=== PATIENT | male | born 1980 | race Two or more races ===

== ENCOUNTER 2019-06-17 12:32 | Inpatient (IN) | payer MEDICARE, OTHER ==
[~2019-06-17] VITALS: Ht 180.3 cm; Wt 110.2 kg
[2019-06-17] MEDS ORDERED: ASPIRIN 81MG TABLET PO ONE (13:30)
[2019-06-17 14:13] LABS: CHLORIDE 99 mEq/L (98-107)
[2019-06-17 14:16] LABS: BASOPHILS % 0.7 % (0.0-2.0); EOSINOPHILS % 3.2 % (0.0-5.0); HEMATOCRIT. 32.2 % (42.0-52.0); HEMOGLOBIN. 10.4 g/dL (14.0-18.0); LYMPHOCYTES % 26.1 % (20.0-50.0); MEAN CORPUSCULAR HEMOGLOBIN 25.2 pg (28.0-32.0); MEAN CORPUSCULAR VOLUME 77.6 fL (80.0-94.0); MEAN PLATELET VOLUME 7.7 fl (7.4-10.4); MONOCYTES % 8.6 % (2.0-8.0); NEUTROPHILS % 61.4 % (40.0-76.0); PLATELET 154 x1000/uL (130-400); RED BLOOD CELL COUNT 4.14 mill/uL (4.7-6.1); RED CELL DISTRIBUTION WIDTH 16.4 % (11.6-14.6)
[2019-06-17 14:38] LABS: PROTHROMBIN TIME 10.7 sec (9.6-11.0)
[2019-06-17] MEDS ORDERED: CLONIDINE 0.1MG TABLET PO PRN (15:15)
[2019-06-17] MEDS ORDERED: ACETAMINOPHEN 325MG TABLET PO PRN (15:15)
[2019-06-17] MEDS ORDERED: DEXTROSE 50% WATER 50ML SYRINGE IV PRN (15:15)
[2019-06-17] MEDS ORDERED: ONDANSETRON HCL 4MG/2ML INJ IV PRN (15:15)
[2019-06-17] MEDS ORDERED: MAGNESIUM/ALUMINUM HYDROXIDE/SIMETHICONE 30ML UDC PO PRN (15:15)
[2019-06-17] MEDS ORDERED: DIPHENHYDRAMINE 50MG/ML VIAL IV PRN (15:15)
[2019-06-17] MEDS ORDERED: HYDRALAZINE 20MG/ML VIAL IV PRN (16:00)
[2019-06-17] MEDS: BLOOD SUGAR DIAGNOSTIC STRIP TEST SCH ×2 (17:00→21:11)
[2019-06-17 17:15] VITALS: BP_SYST 143; BP_SYST 201; BP_DIAS 115; BP_DIAS 95
[2019-06-17] MEDS ORDERED: HYDROCODONE/ACETAMINOPHEN 5/325MG TABLET PO PRN (17:45)
[2019-06-17] MEDS ORDERED: DOCU-138 MT (18:01)
[2019-06-17] MEDS ORDERED: ATOR-2 MT (18:01)
[2019-06-17] MEDS ORDERED: ASPI-864 MT (18:01)
[2019-06-17] MEDS ORDERED: SUCR1TAB30 MT (18:01)
[2019-06-17] MEDS ORDERED: METO25TA6 MT (18:01)
[2019-06-17] MEDS ORDERED: CLON0.1T MT (18:01)
[2019-06-17] MEDS ORDERED: PANT20TA3 MT (18:01)
[2019-06-17] MEDS ORDERED: METO-396 MT (18:01)
[2019-06-17] MEDS ORDERED: LOPHC2 MT (18:01)
[2019-06-17] MEDS: INSULIN LISPRO 100 UNITS/ML SUBCUT SCH ×2 (18:50→21:48)
[2019-06-17 20:00] VITALS: BP 146/73
[2019-06-17] MEDS ORDERED: TEMAZEPAM 15MG CAPSULE PO PRN (21:00)
[2019-06-17] MEDS ORDERED: ATORVASTATIN CALCIUM 40MG TABLET PO SCH (21:00)
[2019-06-17] MEDS: OMEPRAZOLE 20MG CAPSULE EXTENDED RELEASE PO SCH (21:31)
[2019-06-17] MEDS: LISINOPRIL 10MG TABLET PO SCH (21:32)
[2019-06-17] MEDS: SODIUM CHLORIDE 0.9% INJ 3ML FLUSH IVF SCH (21:32)
[2019-06-17] MEDS: NITROGLYCERIN OINT 1GM/INCH UDPKT TD SCH (21:33)
[2019-06-17] MEDS: AMLODIPINE 5MG TABLET PO SCH (21:45)
[2019-06-17] MEDS ORDERED: INSULIN GLARGINE UD 100 UNITS/ML SYR SUBCUT SCH (22:00)
[2019-06-18] VITALS: BP 105/53
[2019-06-18 04:00] VITALS: BP 122/72
[2019-06-18] MEDS: INSULIN LISPRO 100 UNITS/ML SUBCUT SCH ×2 (06:25→11:54)
[2019-06-18] MEDS: BLOOD SUGAR DIAGNOSTIC STRIP TEST SCH ×2 (06:25→11:55)
[2019-06-18] MEDS: SODIUM CHLORIDE 0.9% INJ 3ML FLUSH IVF SCH ×2 (06:32→13:22)
[2019-06-18] MEDS: NITROGLYCERIN OINT 1GM/INCH UDPKT TD SCH ×2 (06:32→13:41)
[2019-06-18] MEDS: OMEPRAZOLE 20MG CAPSULE EXTENDED RELEASE PO SCH (06:32)
[2019-06-18 08:00] VITALS: BP 110/67
[2019-06-18] MEDS: AMLODIPINE 5MG TABLET PO SCH (08:45)
[2019-06-18] MEDS: LISINOPRIL 10MG TABLET PO SCH (08:46)
[2019-06-18] MEDS ORDERED: ASPIRIN 325MG EC TABLET PO SCH (09:00)
[2019-06-18] MEDS ORDERED: REGADENOSON 0.4 MG/5 ML IV NR (09:30)
[2019-06-18 14:51] VITALS: BP 129/75
== END 2019-06-18 15:45 | disposition home or self-care (01) | DRG 205 ==
LOC: ER 12:58 → 8WST 15:00 → EDBEDREQ 15:08 → ENRESERV 16:16
PROVIDERS: ADMIT Internal Medicine; ATTEND Internal Medicine
DX: M94.0 Chondrocostal junction syndrome [Tietze] (principal); N18.6 End stage renal disease; I12.0 Hypertensive chronic kidney disease with stage 5 chronic kidney disease or end stage renal disease; E11.22 Type 2 diabetes mellitus with diabetic chronic kidney disease; E78.00 Pure hypercholesterolemia, unspecified; E78.5 Hyperlipidemia, unspecified; Z82.49 Family history of ischemic heart disease and other diseases of the circulatory system; Z83.3 Family history of diabetes mellitus; Z99.2 Dependence on renal dialysis; Z79.82 Long term (current) use of aspirin; Z79.899 Other long term (current) drug therapy; E11.65 Type 2 diabetes mellitus with hyperglycemia
CPT/HCPCS: 36415; 71045; 82962; 83036; 84484; 87493; 93005; 93306; 93970; 99285; J1815

== ENCOUNTER 2022-05-20 06:47 | Emergency (ER) | payer MEDICARE, MEDICAID ==
[~2022-05-20] VITALS: Ht 175.3 cm; Wt 105.0 kg
[~2022-05-20 06:47] MED LIST: ASPI-864 MT; ATOR-2 MT; CLON0.3T PO; DOCU-138 MT; FOLI0.8T23 MT; METO25TA6 MT; PANT20TA17 MT
[2022-05-20 08:08] LABS: CHLORIDE 99 mEq/L (98-107)
[2022-05-20 08:09] LABS: BASOPHILS % 0.7 % (0.0-2.0); EOSINOPHILS % 2.2 % (0.0-5.0); HEMATOCRIT. 42.4 % (42.0-52.0); HEMOGLOBIN. 13.2 g/dL (14.0-18.0); LYMPHOCYTES % 12.5 % (20.0-50.0); MEAN CORPUSCULAR HEMOGLOBIN 26.1 pg (28.0-32.0); MEAN CORPUSCULAR VOLUME 83.5 fL (80.0-94.0); MEAN PLATELET VOLUME 7.9 fl (7.4-10.4); MONOCYTES % 10.3 % (2.0-8.0); NEUTROPHILS % 74.3 % (40.0-76.0); PLATELET 154 x1000/uL (130-400); RED BLOOD CELL COUNT 5.07 mill/uL (4.7-6.1); RED CELL DISTRIBUTION WIDTH 18.4 % (11.6-14.6)
[2022-05-20] MEDS ORDERED: ONDANSETRON HCL 4MG/2ML INJ IV ONE (09:00)
[2022-05-20] MEDS ORDERED: HYDRALAZINE 20MG/ML VIAL IV ONE (09:30)
[2022-05-20] MEDS ORDERED: KETOROLAC 30MG/ML VIAL IV ONE (10:00)
[2022-05-20 10:48] VITALS: BP 188/94
[2022-05-20] MEDS ORDERED: TOPUD PO (10:50)
== END 2022-05-20 11:14 | disposition home or self-care (01) ==
LOC: ER 06:54
DX: I16.0 Hypertensive urgency (principal); E11.9 Type 2 diabetes mellitus without complications; Z98.890 Other specified postprocedural states
CPT/HCPCS: 36415; 70496; 80053; 82962; 85025; 85610; 96374; 96375; 99291; J0360; J1885; J2405